=== PATIENT | male | born 1965 ===

== ENCOUNTER 2016-12-29 13:23 | Emergency (ER) | payer OTHER ==
[2016-12-29 13:36] VITALS: BP 144/77; PULSE 99; RESP 20; TEMP 98.2; O2SAT 96
--- NOTE | 2016-12-29 13:46 | C.PDOC ---
History Of Present Illness 51 y/o male presents to the ED for evaluation after he sustained a right elbow injury yesterday. Patient states he accidentally fell and landed onto his right elbow while at work. He states, " I was initially fine until last night." Pain became worse with bending and turning. Patient denies any other associated symptoms or injury. R ELBOW INJURY ONSET YEST. PS ACCID FELL AND LANDED ON R ELBOW WHILE @ WORK. "I WAS INITIALLY FINE UNTIL LAST NIGHT". PAIN WORSE W BENDING AND TURNING. DENIES OTHER ASSOC SX OR INJURY EXAM EXT R ELBOW GEN TEND POST ELBOW NEG TEND RADIAL HEAD. PAIN W SUPINATION AND FLEXION. NEURO INTACT SKIN INTACT NO ERYTHEMA Chief Complaint (Nursing): Upper Extremity Problem/Injury History Per: Patient History/Exam Limitations: no limitations Onset/Duration Of Symptoms: Hrs Current Symptoms Are (Timing): Still Present Quality: "Pain" Additional History Per: Patient Past Medical History Reviewed: Historical Data, Nursing Documentation, Vital Signs Vital Signs: Last Vital Signs Temp 98.2 F 12/29/16 13:34 Pulse 99 H 12/29/16 13:34 Resp 20 12/29/16 13:34 BP 144/77 12/29/16 13:34 Pulse Ox 96 12/29/16 22:20 - Medical History PMH: No Chronic Diseases Surgical History: No Surg Hx Family History: States: Unknown Family Hx - Social History Hx Alcohol Use: No Hx Substance Use: No - Immunization History Hx Tetanus Toxoid Vaccination: Yes Hx Influenza Vaccination: Yes Hx Pneumococcal Vaccination: Yes Review Of Systems Except As Marked, All Systems Reviewed And Found Negative. Musculoskeletal: Positive for: Other (+right elbow ) Physical Exam - Physical Exam Appears: Non-toxic, No Acute Distress Skin: Normal Color, Warm, Dry, No Other (erythema ) Head: Atraumatic, Normacephalic Eye(s): bilateral: Normal Inspection Oral Mucosa: Moist Neck: Supple Chest: Symmetrical, No Deformity, No Tenderness Cardiovascular: Rhythm Regular, No Murmur Respiratory: Normal Breath Sounds, No Rales, No Rhonchi, No Wheezing Extremity: No Normal ROM (limited secondary to pain with supination and flexion ), Tenderness (generalized to posterior aspect of right elbow ), Capillary Refill (less than 2 seconds), No Deformity, No Swelling, No Other (tenderness to right radial head ) Neurological/Psych: Oriented x3, Normal Speech, Normal Cognition, Other (no focal deficits ) Gait: Steady ED Course And Treatment O2 Sat by Pulse Oximetry: 96 (on RA) Pulse Ox Interpretation: Normal - Other Rad R ELBOW X-Ray: Interpreted by Me (?CHIP FX) Progress Note: Right elbow XR ordered and reviewed. Orthopedic Time Performed: 14:31 Time Out: Side verified, Site verified, Patient ID confirmed Procedure: Splint Type: Long Location: Right, Arm Consent obtained: Verbal Performed by: Attending Physician Diagnosis: Fracture Capillary refill: Normal Distal Sensation: Normal Distal Motor Function: Normal Capillary Refill: Normal Compartment: Normal Distal Sensation: Normal Distal Motor Function: Normal Patient tolerated procedure: Well Disposition Counseled Patient/Family Regarding: Studies Performed, Diagnosis, Need For Followup - Disposition Referrals: Lars Clemons MD [Staff Provider] - Disposition: HOME/ ROUTINE Disposition Time: 14:31 Condition: IMPROVED Additional Instructions: TAKE MOTRIN AND/OR TYLENOL DIRECTED NEEDED FOR PAIN Instructions: Elbow Fracture in Adults (ED) Forms: Work Excuse - Clinical Impression Clinical Impression: Elbow fracture - Scribe Statement The provider has reviewed the documentation as recorded by the Scribe (Geneva Fernandez) Provider Attestation: All medical record entries made by the Scribe were at my direction and personally dictated by me. I have reviewed the chart and agree that the record accurately reflects my personal performance of the history, physical exam, medical decision making, and the department course for this patient. I have also personally directed, reviewed, and agree with the discharge instructions and disposition.
--- NOTE | 2016-12-29 17:05 | RAD ---
PROCEDURE: Radiographs of the right elbow. HISTORY: TRAUMA COMPARISON: No prior. FINDINGS: BONES: Normal. No fracture. JOINTS: Normal. No osteoarthritis. SOFT TISSUES: Normal. JOINT EFFUSION: None. OTHER FINDINGS: None. IMPRESSION: Unremarkable radiographs of the right elbow.
== END 2016-12-29 14:47 | disposition home or self-care (01) ==
LOC: C.ER 13:23
DX: S42.401A Unspecified fracture of lower end of right humerus, initial encounter for closed fracture (principal); W19.XXXA Unspecified fall, initial encounter; Y93.89 Activity, other specified; Y92.89 Other specified places as the place of occurrence of the external cause; Y99.0 Civilian activity done for income or pay